=== PATIENT | male | born 1955 | race Asian ===

== ENCOUNTER 2018-07-07 22:46 | Emergency (ER) | payer MEDICARE, MEDICAID ==
[2018-07-07] MEDS ORDERED: SODIUM CHLORIDE 0.9% 1000ML 1,000 ML IVS ONE (23:10)
[2018-07-07] MEDS ORDERED: SODIUM CHLORIDE 0.9% (FLUSH) 10 ML SYG IV PRN (23:10)
[2018-07-07] MEDS ORDERED: SODIUM CHLORIDE 0.9% 1000ML 1,000 ML ONE (23:10)
[2018-07-07] MEDS ORDERED: CEFEPIME 2 GM in SODIUM CHL 0.9% 50ML MIN-BAG+ 50 ML IVPB ONE (23:13)
--- NOTE | 2018-07-07 23:20 | ED.PDOC ---
History of Present Illness - General Stated Complaint: unresponsive, tachycardia Time Seen by Provider: 07/07/18 23:05 Source: Vital Signs reviewed, [facility] records Exam Limitations: clinical condition, language barrier, physical impairment - History of Present Illness Initial Comments: Pt sent from [facility] for unresponsiveness. When pt is alert, he speaks only Slovak. 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 and has a trach and G- tube and beckman cath Timing/Duration: unsure Severity: severe Improving Factors: nothing Worsening Factors: nothing Associated Symptoms: fever/chills Allergies/Adverse Reactions: Allergies NO KNOWN ALLERGY Allergy (Verified 07/08/18 01:30) Review of Systems - Review of Systems Unable to Obtain Due To: condition Family Medical History - Family History Father Family History: Unknown Physical Exam - Physical Exam General Appearance: Emaciated, Unkempt, Other - unresponsive Neck: non-tender, full range of motion Respiratory: decreased breath sounds, rhonchi Cardiovascular/Chest: tachycardia Gastrointestinal/Abdominal: non tender, soft Extremity: other - atrophic and contractured Neurologic: other - unresponsive Skin Exam: normal color, warm/dry Lymphatic: no adenopathy Progress - EKG/XRAY/CT EKG: Sinus, Tachy, nonspecific ST T wave Chg Comments: Rate 140, PA 112, QRS 72 Departure - Departure Clinical Impression: Sepsis Qualifiers: Sepsis type: sepsis due to unspecified organism Qualified Code(s): A41.9 - Sepsis, unspecified organism Pneumonia Qualifiers: Pneumonia type: due to unspecified organism Laterality: right Lung location: lower lobe of lung Qualified Code(s): J18.1 - Lobar pneumonia, unspecified organism Disposition: Transfer to Hospital Condition: Fair Departure Forms: ED Discharge - Pt. Copy, Patient Portal Self Enrollment Instructions: DI for Sepsis -- Adult Referrals: JOVAN PIPER [Primary Care Provider] - 1-2 Weeks
--- NOTE | 2018-07-07 23:33 | RAD ---
EXAM DESCRIPTION: Chest,1 View CLINICAL HISTORY:63 years Male, ventilator pt Comparison: None FINDINGS: Tracheostomy tube projecting over the tracheal air column. Sternotomy wires noted. Left lung is clear. Cardiac silhouette within normal limits. Right basilar consolidation suspicious for pneumonia. IMPRESSION: Right basilar consolidation suspicious for pneumonia. Follow-up recommended. Electronically signed by: Cliff Godwin MD 07/07/2018 11:31 PM CDT
[2018-07-07] MEDS ORDERED: CEFEPIME 2 GM VIAL ONE (23:51)
[2018-07-07] MEDS ORDERED: SODIUM CHL 0.9% 50ML MIN-BAG+ 50 ML IVPB ONE (23:52)
[2018-07-08 00:44] VITALS: TEMP 99.7
[2018-07-08 01:49] VITALS: BP 134/68; O2SAT 95
== END 2018-07-08 01:54 | disposition short-term general hospital (02) ==
LOC: ER 22:46
DX: A41.9 Sepsis, unspecified organism (principal); J18.9 Pneumonia, unspecified organism; R41.89 Other symptoms and signs involving cognitive functions and awareness; R00.0 Tachycardia, unspecified
CPT/HCPCS: 36600; 71045; 80053; 81001; 82550; 82553; 82803; 82805; 83605; 84484; 85025; 85379; 85610; 85730; 87040; 87077; 87086; 93005; 94002; J0692; J7030; J7050

== ENCOUNTER 2018-07-14 17:32 | Emergency (ER) | payer MEDICARE, MEDICAID ==
[2018-07-14] MEDS ORDERED: SODIUM CHLORIDE 0.9% 1000ML 1,000 ML ONE (18:23)
--- NOTE | 2018-07-14 18:27 | RAD ---
EXAM DESCRIPTION: AP view of the chest CLINICAL HISTORY:63 years Male, low o2 sat Comparison: July 07, 2018 2319 hours FINDINGS: Tracheostomy tube remains in position. Interval placement of left upper extremity PICC which terminates in the mid SVC. Persistent alveolar opacities in the right mid/lower lung zone suspicious for pneumonia. There is also atelectasis on the right. Left lung is clear. No pleural abnormalities. Cardiac silhouette is normal in size. The patient has had a median sternotomy. Gastrostomy tube is projected over the stomach. IMPRESSION: Left upper extremity PICC terminates in the mid SVC. Persistent right basilar airspace disease suspicious for pneumonia. Electronically signed by: Houston Turcios DO 07/14/2018 6:26 PM CDT
--- NOTE | 2018-07-14 18:31 | ED.PDOC ---
History of Present Illness - General Source: EMS, residential records Exam Limitations: clinical condition, physical impairment - History of Present Illness Initial Comments: PT IS A VENT DEPENDENT PATIENT THAT WAS SENT FROM [facility] FOR LOW O2 SAT. PT IS CURRENTLY BEING TREATED FOR PNEUMONIA AND SEPSIS WITH VANCOMYCIN AND CEFIPIME. HPI AND ROS LIMITED DUE TO PT MENTAL STATUS. Timing/Duration: this afternoon Severity: moderate <Pierce Astudillo H - Last Filed: 07/14/18 18:28> <Yung Bruno - Last Filed: 07/15/18 01:15> - General Chief Complaint: Respiratory Problem Stated Complaint: LOW O2 SAT Time Seen by Provider: 07/14/18 17:49 - History of Present Illness Allergies/Adverse Reactions: Allergies NO KNOWN ALLERGY Allergy (Verified 07/08/18 01:30) Review of Systems - Review of Systems Constitutional: States: see HPI EENTM: States: see HPI Respiratory: States: see HPI Cardiology: States: see HPI Gastrointestinal/Abdominal: States: see HPI Musculoskeletal: States: see HPI Skin: States: see HPI Neurological: States: see HPI Endocrine: States: see HPI Hematologic/Lymphatic: States: see HPI <Pierce Astudillo H - Last Filed: 07/14/18 18:28> Past Medical History (General) - Patient Medical History Hx Seizures: Yes Hx Stroke: Yes Hx of COPD: Yes Hx Cardiac Disorders: Yes Hx Congestive Heart Failure: No Hx Hypertension: Yes Hx Cancer: No Hx Hepatitis C: No - Vaccination History Hx Tetanus, Diphtheria Vaccination: No Hx Influenza Vaccination: Yes Hx Pneumococcal Vaccination: Yes Immunizations Up to Date: No - Social History Hx Tobacco Use: No Hx Chewing Tobacco Use: No Hx Alcohol Use: No Hx Substance Use: No Hx Substance Use Treatment: No Hx Depression: No Feels Threatened In Home Enviroment: No Feels Threatened In a Relationship: No Hx Physical Abuse: No Hx Emotional Abuse: No Hx Suspected Abuse: No - Activities of Daily Living Senior Living/Assisted Living (if applicable):: [facility] (if applicable):: None - Female History Patient is a Female of Child Bearing Age (10 -59 yrs old): No Patient : No <Pierce Astudillo - Last Filed: 07/14/18 18:28> Family Medical History - Family History Father Family History: Unknown <Pierce Astudillo - Last Filed: 07/14/18 18:28> Physical Exam - Physical Exam General Appearance: Alert, Emaciated, Frail, No apparent distress, Ill Appearing Eye Exam: bilateral normal Neck: normal inspection Respiratory: no respiratory distress, no accessory muscle use, rhonchi Cardiovascular/Chest: no murmur, tachycardia Gastrointestinal/Abdominal: soft, no organomegaly, other - PEG TUBE IN LUQ Extremity: other - CONTRACTED EXTREMITIES Neurologic: alert Skin Exam: normal color, warm/dry <Pierce Astudillo - Last Filed: 07/14/18 18:28> Progress - EKG/XRAY/CT EKG: Sinus, Tachy - @118BPM, NL INTERVALS, NL AXIS, no ST T wave changes, Unchanged from - 07/07/18 XRAY: chest - PERSISTENT RIGHT BASILAR INFILTRATE, PER RAD CT Ordered: No CT Interpretation Call Back: No <Pierce Astudillo - Last Filed: 07/14/18 18:28> - Progress Progress: 07/15/18 01:06 Vital Signs - 8 hr 07/14/18 07/14/18 07/14/18 17:32 18:28 19:10 Temperature 97.8 F Pulse Rate [ 118 H Apical] Respiratory 14 14 Rate Respiratory 18 17 Rate [Volume Control Data] Blood Pressure 114/90 [Left Arm] O2 Sat by Pulse 93 L 93 L Oximetry 07/14/18 07/14/18 07/14/18 19:42 20:25 20:46 Temperature Pulse Rate [ 113 H Apical] Respiratory 14 16 Rate Respiratory 15 Rate [Volume Control Data] Blood Pressure 116/81 123/76 [Left Arm] O2 Sat by Pulse 99 99 Oximetry 07/14/18 07/14/18 07/14/18 21:20 22:10 23:18 Temperature Pulse Rate [ 112 H Apical] Respiratory 16 16 Rate Respiratory 14 Rate [Volume Control Data] Blood Pressure 129/94 113/71 [Left Arm] O2 Sat by Pulse 99 99 Oximetry 07/14/18 23:20 Temperature 98.3 F Pulse Rate [ 107 H Apical] Respiratory 16 Rate Respiratory Rate [Volume Control Data] Blood Pressure 95/67 [Left Arm] O2 Sat by Pulse 99 Oximetry 07/15/18 01:13 Patient presently on Cefepime and Vancomycin continued after his hospital discharge from [facility] at the [facility] - Results/Orders Results/Orders: 07/14/18 18:00 EKG STAT 07/14/18 18:19 Mechanical Ventilation DAILY 07/14/18 18:20 Capnography .ONCE 07/14/18 18:21 Oxygen Delivery Assessment: QSHIFT 07/14/18 19:10 URINE CULTURE W/COLONY COUNT Stat 07/15/18 00:34 Sodium Chloride 0.9% 1000ML [Ns 1000 ml] 1,000 ml IVS ONCE 07/15/18 09:00 O2 [Oxygen] Daily Laboratory Results - last 24 hr 07/14/18 07/14/18 07/14/18 18:05 18:07 18:07 WBC 22.1 H* RBC 3.57 L Hgb 9.7 L Hct 30.5 L MCV 85.5 MCH 27.1 MCHC 31.9 L RDW 18.1 H Plt Count 459 H MPV 6.0 L Absolute Neuts (auto) 19.20 H Absolute Lymphs (auto) 0.90 L Absolute Monos (auto) 1.70 H Absolute Eos (auto) 0.30 Absolute Basos (auto) 0.10 Neutrophils % 87.0 H Neutrophils % (Manual) 88.0 H Lymphocytes % 3.8 L Lymphocytes % (Manual) 2.0 Monocytes % 7.7 Monocytes % (Manual) 8.0 Eosinophils % 1.2 Basophils % 0.3 Band Neutrophils 2.0 Normal RBC Morphology Plts alexis increased pCO2 43 pO2 64 L HCO3 33.9 ABG pH 7.510 H ABG O2 Saturation 93.9 L ABG Base Excess 10.0 ABG Deoxyhemoglobin 6.0 H Oxyhemoglobin % 92.1 L Carboxyhemoglobin % 0.3 L Methemoglobin % Sat 1.7 H Calc Total Hemoglobin 9.4 L Sodium 137 Potassium 3.4 L Chloride 96 L Carbon Dioxide 33 H Anion Gap 11.4 L BUN 18 Creatinine 0.45 L BUN/Creatinine Ratio 40.0 H Random Glucose 180 H Serum Osmolality 280.2 Lactic Acid Calcium 8.9 Total Bilirubin 0.4 AST 30 ALT 11 Alkaline Phosphatase 64 Creatine Kinase CK-MB (CK-2) CK-MB (CK-2) % Troponin I Serum Total Protein 6.8 Albumin 2.1 L Globulin 4.7 H Albumin/Globulin Ratio 0.4 L Urine Color Urine Appearance Urine pH Ur Specific [place] Urine Protein Urine Glucose (UA) Urine Ketones Urine Blood Urine Nitrite Urine Bilirubin Urine Urobilinogen Ur Leukocyte Esterase Urine RBC Urine WBC Ur Epithelial Cells Urine Bacteria Urine Yeast 07/14/18 07/14/18 07/14/18 18:07 19:10 22:25 WBC RBC Hgb Hct MCV MCH MCHC RDW Plt Count MPV Absolute Neuts (auto) Absolute Lymphs (auto) Absolute Monos (auto) Absolute Eos (auto) Absolute Basos (auto) Neutrophils % Neutrophils % (Manual) Lymphocytes % Lymphocytes % (Manual) Monocytes % Monocytes % (Manual) Eosinophils % Basophils % Band Neutrophils Normal RBC Morphology pCO2 pO2 HCO3 ABG pH ABG O2 Saturation ABG Base Excess ABG Deoxyhemoglobin Oxyhemoglobin % Carboxyhemoglobin % Methemoglobin % Sat Calc Total Hemoglobin Sodium Potassium Chloride Carbon Dioxide Anion Gap BUN Creatinine BUN/Creatinine Ratio Random Glucose Serum Osmolality Lactic Acid 1.3 Calcium Total Bilirubin AST ALT Alkaline Phosphatase Creatine Kinase 21 L CK-MB (CK-2) 3.3 CK-MB (CK-2) % Not Reportable Troponin I 0.04 Serum Total Protein Albumin Globulin Albumin/Globulin Ratio Urine Color Yellow Urine Appearance Turbid Urine pH 7.0 Ur Specific [place] 1.025 Urine Protein 100 H Urine Glucose (UA) Negative Urine Ketones Negative Urine Blood Large H Urine Nitrite Negative Urine Bilirubin Negative Urine Urobilinogen 0.2 Ur Leukocyte Esterase Small H Urine RBC Tntc H Urine WBC 20-30 H Ur Epithelial Cells 1-3 Urine Bacteria 3+ H Urine Yeast 4+ budding <Yung Bruno R - Last Filed: 07/15/18 01:15> Departure <Pierce Astudillo H - Last Filed: 07/14/18 18:28> - Departure Time of Disposition: 01:14 <Yung Bruno R - Last Filed: 07/15/18 01:15> - Departure Clinical Impression: Ventilator dependent, Chronic indwelling [place] catheter, PEG (percutaneous endoscopic gastrostomy) status Respiratory failure Qualifiers: Chronicity: acute on chronic Respiratory failure complication: hypoxia Qualified Code(s): J96.21 - Acute and chronic respiratory failure with hypoxia Pneumonia Qualifiers: Pneumonia type: due to Pseudomonas Laterality: right Lung location: lower lobe of lung Qualified Code(s): J15.1 - Pneumonia due to Pseudomonas Disposition: Transfer to Hospital Condition: Poor Departure Forms: Patient Portal Self Enrollment Referrals: JOVAN PIPER [Primary Care Provider] - 1-2 Weeks Transfer to Outside Facility - Transfer Information Accepting Provider:: dr. Kori Mar Accepting Facility: [facility] Reason for Transfer: ICU <Yung Bruno - Last Filed: 07/15/18 01:15>
[2018-07-15] MEDS ORDERED: MEROPENEM 1 GM in SODIUM CHL 0.9% 50ML MIN-BAG+ 50 ML IVPB ONE (00:18)
[2018-07-15] MEDS ORDERED: SODIUM CHLORIDE 0.9% 1000ML 1,000 ML IVS ONE (00:34)
[2018-07-15] MEDS ORDERED: MEROPENEM 1 GM VIAL IVPB ONE (00:39)
[2018-07-15] MEDS ORDERED: SODIUM CHL 0.9% 50ML MIN-BAG+ 50 ML IVPB ONE (00:39)
[2018-07-15 02:49] VITALS: BP 111/68; TEMP 98.2; O2SAT 100
== END 2018-07-15 02:49 | disposition short-term general hospital (02) ==
LOC: ER 17:32
DX: J96.21 Acute and chronic respiratory failure with hypoxia (principal); J15.1 Pneumonia due to Pseudomonas; R09.02 Hypoxemia; R41.82 Altered mental status, unspecified; J44.9 Chronic obstructive pulmonary disease, unspecified; I10 Essential (primary) hypertension; Z99.11 Dependence on respirator [ventilator] status; Z93.1 Gastrostomy status; Z86.73 Personal history of transient ischemic attack (TIA), and cerebral infarction without residual deficits
CPT/HCPCS: 36600; 71045; 80053; 81001; 82550; 82553; 82803; 82805; 83605; 84484; 85025; 87086; 93005; 94002; 94770; J2185; J7030; J7050

== ENCOUNTER 2018-08-08 16:11 | Emergency (ER) | payer MEDICARE, MEDICAID ==
--- NOTE | 2018-08-08 16:58 | RAD ---
EXAM DESCRIPTION: Chest,1 View CLINICAL HISTORY: fever COMPARISON: July 14, 2018 FINDINGS: Persistent abnormal parenchymal opacity at the right perihilar level/right lower lung could be secondary to an infectious process however worrisome for underlying obstruction or mass. Correlation with a CT is recommended for further evaluation. Reticular nodular opacities also noted within the right mid and lower lung. There is elevation of the right hemidiaphragm unchanged compared with the prior exam. Patient is status post median sternotomy. EKG leads project over the chest. There is a tracheostomy tube. IMPRESSION: Persistent abnormal parenchymal opacity within the right lung could be secondary to postobstructive atelectasis or pneumonitis however worrisome for underlying obstruction or mass. Correlation with a contrast enhanced CT is recommended for further evaluation. Electronically signed by: George Sam MD 08/08/2018 4:56 PM [employer]
[2018-08-08] MEDS ORDERED: cefTRIAXone SODIUM 1 GM VIAL ONE (17:18)
[2018-08-08] MEDS ORDERED: SODIUM CHL 0.9% 50ML MIN-BAG+ 50 ML IVPB ONE (17:18)
[2018-08-08] MEDS: SODIUM CHLORIDE 0.9% 1000ML 1,000 ML IVS ONE (17:23)
[2018-08-08] MEDS: cefTRIAXone SODIUM 1 GM in SODIUM CHL 0.9% 50ML MIN-BAG+ 50 ML IVPB ONE (17:24)
[2018-08-08] MEDS ORDERED: PIPERACILLIN/TAZOBACTAM 3.375 GM VIAL IVPB ONE (17:34)
[2018-08-08] MEDS ORDERED: SODIUM CHLORIDE 0.9% 100ML 100 ML IVPB ONE (17:35)
[2018-08-08] MEDS: PIPERACILLIN/TAZOBACTAM 3.375 GM in SODIUM CHLORIDE 0.9% 100ML 100 ML IVPB ONE (17:46)
[2018-08-08 17:50] VITALS: BP 109/81; O2SAT 99
--- NOTE | 2018-08-08 17:52 | ED.PDOC ---
History of Present Illness - General Chief Complaint: Fever Stated Complaint: high heart rate Time Seen by Provider: 08/08/18 16:24 Source: EMS, snf records Exam Limitations: clinical condition - History of Present Illness Initial Comments: Patient presents from [facility] after it was noticed that he had tachycardia. They gave him clonidine 0.1 mg x one for that. He has had sepsis for one month and has been on Vancomycin. Blood cultures that recently became available today showed Serratia and Pseudomonas. He is not currently on antibiotics according to report. No other information is available. Timing/Duration: unsure Severity: moderate Improving Factors: nothing Worsening Factors: nothing Associated Symptoms: other - unable to obtain any further information Allergies/Adverse Reactions: Allergies NO KNOWN ALLERGY Allergy (Verified 07/08/18 01:30) Review of Systems - Review of Systems Constitutional: States: fever EENTM: States: no symptoms reported Respiratory: States: other - chronic vent patient Cardiology: States: see HPI Gastrointestinal/Abdominal: States: no symptoms reported Genitourinary: States: no symptoms reported Musculoskeletal: States: no symptoms reported Skin: States: no symptoms reported Neurological: States: no symptoms reported Endocrine: States: no symptoms reported Hematologic/Lymphatic: States: no symptoms reported Past Medical History (General) - Patient Medical History Hx Seizures: Yes Hx Stroke: Yes Hx of COPD: Yes Hx Cardiac Disorders: Yes Hx Congestive Heart Failure: No Hx Hypertension: Yes Hx Diabetes: No Hx Cancer: No Hx Hepatitis C: No MRSA Source:: Sputum - Vaccination History Hx Tetanus, Diphtheria Vaccination: No Hx Influenza Vaccination: Yes Hx Pneumococcal Vaccination: Yes - Social History Hx Tobacco Use: No Hx Chewing Tobacco Use: No Hx Alcohol Use: No Hx Substance Use: No Hx Substance Use Treatment: No Hx Depression: No Hx Physical Abuse: No Hx Emotional Abuse: No Hx Suspected Abuse: No - Activities of Daily Living Correction/Assisted Living (if applicable):: [facility] - Female History Patient : No Family Medical History - Family History Father Family History: Unknown Physical Exam - Physical Exam General Appearance: Other - on mechanical ventilator, eyes follow practitioner Eye Exam: bilateral normal Ears, Nose, Throat: normal ENT inspection Neck: other - no LAD, tracheal ventilator tube in place Respiratory: other - rales at bases Cardiovascular/Chest: tachycardia Gastrointestinal/Abdominal: normal bowel sounds, other - G-tube in place Back Exam: no CVA tenderness Extremity: no pedal edema Neurologic: other - responds to motion with eye movement and withdraws from pain Skin Exam: normal color Lymphatic: no adenopathy Progress - Progress Progress: 08/08/18 17:55 Laboratory Tests 08/08/18 08/08/18 08/08/18 16:37 17:00 17:00 WBC 24.1 H* RBC 3.59 L Hgb 9.8 L Hct 30.5 L MCV 85.1 MCH 27.2 MCHC 32.1 L RDW 17.6 H Plt Count 265 MPV 6.6 L Absolute Neuts (auto) 21.10 H Absolute Lymphs (auto) 0.50 L Absolute Monos (auto) 2.40 H Absolute Eos (auto) 0.00 Absolute Basos (auto) 0.00 Neutrophils % 87.9 H Neutrophils % (Manual) 71.0 Lymphocytes % 2.2 L Lymphocytes % (Manual) 2.0 Monocytes % 9.8 H Monocytes % (Manual) 0.0 Eosinophils % 0.0 L Basophils % 0.1 Band Neutrophils 27.0 H* Eosinophils 0.0 Basophils 0.0 Platelet Estimate Normal Sodium 129 L Potassium 3.5 L Chloride 93 L Carbon Dioxide 27 Anion Gap 12.5 BUN 17 Creatinine 0.64 BUN/Creatinine Ratio 26.6 H Random Glucose 130 H Serum Osmolality 262.2 L Lactic Acid Calcium 8.8 Total Bilirubin 0.3 AST 16 ALT < 8 L Alkaline Phosphatase 67 Serum Total Protein 7.3 Albumin 2.5 L Globulin 4.8 H Albumin/Globulin Ratio 0.5 L Urine Color Red Urine Appearance Sl cloudy Urine pH 6.0 Ur Specific [place] 1.020 Urine Protein >=300 H Urine Glucose (UA) Negative Urine Ketones Trace Urine Blood Large H Urine Nitrite Negative Urine Bilirubin Moderate Urine Urobilinogen 1.0 Ur Leukocyte Esterase Small H Urine RBC Tntc H Urine WBC 3-5 H Ur Epithelial Cells 0 Urine Bacteria 1+ 08/08/18 17:21 WBC RBC Hgb Hct MCV MCH MCHC RDW Plt Count MPV Absolute Neuts (auto) Absolute Lymphs (auto) Absolute Monos (auto) Absolute Eos (auto) Absolute Basos (auto) Neutrophils % Neutrophils % (Manual) Lymphocytes % Lymphocytes % (Manual) Monocytes % Monocytes % (Manual) Eosinophils % Basophils % Band Neutrophils Eosinophils Basophils Platelet Estimate Sodium Potassium Chloride Carbon Dioxide Anion Gap BUN Creatinine BUN/Creatinine Ratio Random Glucose Serum Osmolality Lactic Acid 1.4 Calcium Total Bilirubin AST ALT Alkaline Phosphatase Serum Total Protein Albumin Globulin Albumin/Globulin Ratio Urine Color Urine Appearance Urine pH Ur Specific [place] Urine Protein Urine Glucose (UA) Urine Ketones Urine Blood Urine Nitrite Urine Bilirubin Urine Urobilinogen Ur Leukocyte Esterase Urine RBC Urine WBC Ur Epithelial Cells Urine Bacteria wbc 24.1. Lactic acid 1.3. Patient given Rocephin 1 gram IV and Zosyn 3.375 grams IV x one based on the most recent sensitivity data. CXR showed pneumonitis vs. infiltrates at the bases. UA showed hematuria. Patient was also given NS one liter IV bolus due to sbp of 91 and the tachycardia. Likely sepsis from a pulmonary source. Transferred to [facility]. Departure - Departure Clinical Impression: Sepsis, Pneumonia Disposition: Transfer to Hospital Condition: Serious Departure Forms: ED Discharge - Pt. Copy, Patient Portal Self Enrollment Diet: other - as per hospitalist Activity: other - as per hospitalist Referrals: JOVAN PIPER [Primary Care Provider] - 1-2 Weeks
[2018-08-08 18:26] VITALS: TEMP 100.2
== END 2018-08-08 18:26 | disposition short-term general hospital (02) ==
LOC: ER 16:11
DX: J18.9 Pneumonia, unspecified organism (principal); A41.9 Sepsis, unspecified organism; R00.0 Tachycardia, unspecified; I10 Essential (primary) hypertension; J44.9 Chronic obstructive pulmonary disease, unspecified; Z86.73 Personal history of transient ischemic attack (TIA), and cerebral infarction without residual deficits
CPT/HCPCS: 36415; 71045; 80053; 81001; 83605; 85025; 87040; 87086; 93005; 94002; J0696; J2543; J7030; J7050

== ENCOUNTER 2018-09-11 20:09 | Emergency (ER) | payer MEDICARE, MEDICAID ==
--- NOTE | 2018-09-11 20:22 | ED.PDOC ---
History of Present Illness - General Chief Complaint: General Stated Complaint: per NH has been less alet than baseline Time Seen by Provider: 09/11/18 20:15 Source: EMS, senior care records Exam Limitations: clinical condition, physical impairment - History of Present Illness Initial Comments: patient comes in today from senior care for altered level of consciousness. detention noted that he was not as alert as his normal baseline. Patient has had multiple bouts of sepsis over the last 3 months since arrival to the senior care. Patient's last episode of illness was on 07 August when he was transferred to [facility]. At that admission blood cultures were negative that had been obtained in this emergency room. Prior to that blood cultures have been positive for both pseudomonas and Seratia. 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 Patient is on a ventilator and is a full code. detention was unable to give full report to EMS and stated they were not sure where his sepsis had originated from for the last hospitalization. Timing/Duration: 24 hours Severity: moderate Improving Factors: nothing Worsening Factors: nothing Associated Symptoms: denies symptoms Allergies/Adverse Reactions: Allergies NO KNOWN ALLERGY Allergy (Verified 07/08/18 01:30) Review of Systems - Review of Systems Review of Systems: 09/11/18 20:22 unable to obtain secondary to chronic clinic condition Past Medical History (General) - Patient Medical History Hx Seizures: Yes Hx Stroke: Yes Hx of COPD: Yes Hx Cardiac Disorders: Yes Hx Congestive Heart Failure: No Hx Hypertension: Yes Hx Diabetes: No Hx Cancer: No Hx Hepatitis C: No MRSA Source:: Sputum - Vaccination History Hx Tetanus, Diphtheria Vaccination: No Hx Influenza Vaccination: Yes Hx Pneumococcal Vaccination: Yes - Social History Hx Tobacco Use: No Hx Chewing Tobacco Use: No Hx Alcohol Use: No Hx Substance Use: No Hx Substance Use Treatment: No Hx Depression: No Hx Physical Abuse: No Hx Emotional Abuse: No Hx Suspected Abuse: No - Female History Patient : No Family Medical History - Family History Father Family History: Unknown Physical Exam - Physical Exam General Appearance: Frail, No apparent distress, Other - patient is awake and looking around, not able to answer questions, per RT baseline status Eye Exam: bilateral normal Ears, Nose, Throat: normal ENT inspection, normal pharynx Neck: full range of motion, supple Respiratory: chest non-tender, lungs clear, normal breath sounds Cardiovascular/Chest: normal peripheral pulses, regular rate, rhythm, no murmur Peripheral Pulses: radial,right: 2+, radial,left: 2+ Gastrointestinal/Abdominal: normal bowel sounds, non tender, soft, other - G Tube in place Extremity: normal range of motion, non-tender, normal inspection Neurologic: alert Skin Exam: normal color Progress - Progress Progress: called patient's point of contact which is his [id number]. Per daughter-in -law he was a very healthy man up until December of this year. In December during traveling to the non-patient sustained severe heart attack and hemorrhagic CVA. After that he was unable to be taken off the ventilator for more than a day to time and he seemed to have rapidly decompensated ever since. As they were unable to him off the ventilator he was placed at the senior care here in [facility] [facility] in June. Since then he has been back in the emergency room every 1-2 weeks and hospitalized at [facility] approximately once a month. He does not ever seem to improve and they have yet to find where his source of sepsis is per his [id number]. He does seem alert and able to communicate with his side however. Family has discussed how much longer they would like to continue to do invasive therapy but have not come to a consensus yet. As he was healthy up until early this year they still have hopes that he could improve and potentially recover although they understand that he has progressively worsened in the last 3 months. At this time they still do want him to have access to full treatment and he is a full code. Discussed patient' s need for blood transfusion and his elevated white blood cell count and anemia. Guaiac is negative and he has no acute blood loss that we can find. CT of abdomen and pelvis shows some small amount of free fluid only. Chest Xray does show persistent right basilar infiltrate and CT shows pneumonia bilaterally. Blood to be started here then will arrange transfer. 09/11/18 23:18 09/11/18 23:22 09/11/18 23:30 09/12/18 01:16 - Results/Orders Results/Orders: 09/11/18 20:16 TROPONIN-I Stat BLOOD CULTURE Stat 09/11/18 21:20 CBC (AUTOMATED) W/AUTO DIFF Stat DIFFERENTIAL,MANUAL BY FLAGS Stat 09/11/18 21:55 URINE CULTURE W/COLONY COUNT Stat 09/11/18 22:34 Vancomycin HCl Inj 1,000 mg Sodium Chloride 0.9% 250Ml [NS 250ml] 250 ml IVPB ONCE 09/11/18 22:48 PRBC [PACKED CELLS,LR] Stat TYPE AND SCREEN Stat Laboratory Results WBC 25.2 K/mm3 (4.8-10.8) H* 09/11/18 21:20 RBC 2.27 M/mm3 (4.70-6.10) L 09/11/18 21:20 Hgb 6.3 gm/dL (14.0-18.0) L* 09/11/18 21:20 Hct 19.3 % (42.0-52.0) L 09/11/18 21:20 MCV 85.1 fl (80.0-94.0) 09/11/18 21:20 MCH 27.7 pg (27.0-31.0) 09/11/18 21:20 MCHC 32.7 g/dL (33.0-37.0) L 09/11/18 21:20 RDW 17.2 % (11.5-14.5) H 09/11/18 21:20 Plt Count 404 K/mm3 (130-400) H 09/11/18 21:20 MPV 5.8 fl (7.40-10.4) L 09/11/18 21:20 Absolute Neuts (auto) K/uL (1.8-6.8) 09/11/18 21:20 Absolute Lymphs (auto) K/uL (1.0-3.4) 09/11/18 21:20 Absolute Monos (auto) K/uL (0.2-0.8) 09/11/18 21:20 Absolute Eos (auto) K/uL (0.0-0.4) 09/11/18 21:20 Absolute Basos (auto) K/uL (0.0-0.1) 09/11/18 21:20 Neutrophils % % (42.0-78.0) 09/11/18 21:20 Neutrophils % (Manual) 77.0 % (42.0-78.0) 09/11/18 21:20 Lymphocytes % % (20.0-50.0) 09/11/18 21:20 Lymphocytes % (Manual) 8.0 % 09/11/18 21:20 Monocytes % % (2.0-9.0) 09/11/18 21:20 Monocytes % (Manual) 7.0 % 09/11/18 21:20 Eosinophils % % (1.0-5.0) 09/11/18 21:20 Basophils % % (0.0-2.0) 09/11/18 21:20 Band Neutrophils 7.0 % (0-2) H 09/11/18 21:20 Metamyelocytes 1.0 % (0-0) H 09/11/18 21:20 RBC Morphology 1+aniso 09/11/18 21:20 Anisocytosis 1+ 09/11/18 21:20 RBC Morph Comment Plts alexis increased 09/11/18 21:20 PUBS Tear Drop Cells 1+ 09/11/18 21:20 Sodium 132 mmol/L (135-145) L 09/11/18 21:55 Potassium 3.1 mmol/L (3.6-5.0) L 09/11/18 21:55 Chloride 92 mmol/L (101-111) L 09/11/18 21:55 Carbon Dioxide 28 mmol/L (21-31) 09/11/18 21:55 Anion Gap 15.1 (12-18) 09/11/18 21:55 BUN 54 mg/dL (7-18) H 09/11/18 21:55 Creatinine 1.45 mg/dL (0.6-1.3) H 09/11/18 21:55 BUN/Creatinine Ratio 37.2 (10-20) H 09/11/18 21:55 Random Glucose 100 mg/dL (70-105) 09/11/18 21:55 Serum Osmolality 279.4 mOsm/L (275-295) 09/11/18 21:55 Lactic Acid 0.7 mmol/L (0.5-2.2) 09/11/18 21:55 Calcium 9.5 mg/dL (8.4-10.2) 09/11/18 21:55 Total Bilirubin < 0.2 mg/dL (0.2-1.0) L 09/11/18 21:55 AST 16 IU/L (10-42) 09/11/18 21:55 ALT < 8 IU/L (10-60) L 09/11/18 21:55 Alkaline Phosphatase 68 IU/L (42-121) 09/11/18 21:55 Serum Total Protein 7.4 gm/dL (6.4-8.2) 09/11/18 21:55 Albumin 2.0 g/dl (3.2-5.5) L 09/11/18 21:55 Globulin 5.4 gm/dL (2.3-3.5) H 09/11/18 21:55 Albumin/Globulin Ratio 0.4 (1.1-1.9) L 09/11/18 21:55 Urine Color Yellow (Yellow) 09/11/18 21:55 Urine Appearance Cloudy (Clear) 09/11/18 21:55 Urine pH 7.0 (4.5-7.8) 09/11/18 21:55 Ur Specific [place] 1.015 (1.005-1.030) 09/11/18 21:55 Urine Protein 100 mg/dL H 09/11/18 21:55 Urine Glucose (UA) Negative mg/dL (Negative) 09/11/18 21:55 Urine Ketones Negative mg/dL (NEGATIVE) 09/11/18 21:55 Urine Blood Large (Negative) H 09/11/18 21:55 Urine Nitrite Negative 09/11/18 21:55 Urine Bilirubin Negative (NEGATIVE) 09/11/18 21:55 Urine Urobilinogen 0.2 mg/dL (0.2-1.0) 09/11/18 21:55 Ur Leukocyte Esterase Small (Negative) H 09/11/18 21:55 Urine RBC 5-10 /hpf H 09/11/18 21:55 Urine WBC 5-10 /hpf H 09/11/18 21:55 Ur Epithelial Cells 0 /hpf 09/11/18 21:55 Amorphous Sediment 1+ 09/11/18 21:55 Urine Bacteria 1+ 09/11/18 21:55 Urine Yeast 2+ budding 09/11/18 21:55 Stool Occult Blood Negative 09/11/18 20:55 Patient Name: NYDIA POE V Gender: Male Date of : 1955 Referring Physician: NENA HANSON Organization: [facility] Accession Number: [id number] Requested Date: September 11, 2018 20:16 Report Status: Final Requested Procedure: 1 Procedure Description: Chest,1 View Modality: CR Findings Reporting MD: Houston Turcios Fellow MD: Not available Dictation Time: Distribution Designer: Not available Canvas Cutter Hand Date: EXAM DESCRIPTION: AP view of the chest CLINICAL HISTORY:63 years Male, altered LOC Comparison: August 08, 2018 1637 hours FINDINGS: Tracheostomy tube remains in place but appears retracted. Persistent right lower lobe opacities. Increased hazy opacity in the left lung base. The cardiac silhouette and pulmonary vessels are stable. There is blunting of the right CP angle. IMPRESSION: New airspace opacities in the left base may represent atelectasis or pneumonia. Persistent right basilar opacities again concerning for underlying obstruction or mass. Suspect tiny right pleural effusion Patient Name: NYDIA POE V Gender: Male Date of : 1955 Referring Physician: NENA HANSON Organization: [facility] Accession Number: [id number] Requested Date: September 11, 2018 23:29 Report Status: Final Requested Procedure: 1 Procedure Description: Abdoment/Pelvis w/o Contrast Modality: CT Findings Reporting MD: Fer Mott Fellow MD: Not available Dictation Time: Distribution Designer: Not available Canvas Cutter Hand Date: EXAM: CT ABDOMEN PELVIS WITHOUT IV CONTRAST, CT CHEST WITHOUT IV CONTRAST HISTORY: anemia/sepsis COMPARISON: None Available TECHNIQUE: Multiple helical axial tomographic images were obtained of the chest, abdomen, and pelvis without intravenous contrast. Coronal and sagittal reformatted images were obtained. This exam was performed according to our departmental dose-optimization program, which includes automated exposure control, adjustment of the mA and/or kV according to patient size and/or use of iterative reconstruction technique. FINDINGS: CT chest: Thyroid gland: unremarkable. Axilla: unremarkable. Aorta: Aortic atherosclerosis present. No evidence of aortic aneurysm. Mediastinum: Unremarkable. No adenopathy. Heart: Heart is normal in size. Coronary artery atherosclerosis noted. Lungs/airways: Consolidation throughout the right lower lobe noted with bronchiectasis. Small area of consolidation in the posterior left lower lobe is present. There are scattered groundglass and tree-in-bud opacities in both lungs with a dependent and basilar predominance. Tracheostomy tube is present. Small amount of secretions in the trachea and right mainstem bronchus noted. No evidence of tracheal or major bronchial occlusion. Mild paraseptal emphysematous changes are present. Pleural spaces: Trace right pleural effusion is noted. No [employer] [address] [place] [address] T [phone] F [phone] [email or web address] - Report exported on Sep 12, 2018 01:09:23 -0600 - Page 2 of 3 pneumothorax. Osseous: Sternotomy changes are noted. Mild deformity of a few ribs noted bilaterally suggestive of remote fractures. Soft tissues: Unremarkable. CT abdomen and pelvis: Liver: Homogenous attenuation is demonstrated. Gallbladder/biliary: Gallbladder appears unremarkable. No calcified gallstones. No evidence of biliary ductal dilatation. Pancreas: Unremarkable. Spleen: Unremarkable. Adrenals: Unremarkable. Kidneys and ureters: There are a few small stones in the right kidney measuring up to 4 mm. No hydronephrosis. No obstructing ureteral stone. Bladder: Bladder wall appears thickened. Pelvic organs: Unremarkable. Bowel: A G-tube is present. No evidence of bowel obstruction. No bowel wall thickening. Appendix is not well seen. Peritoneum: No free air. There is a small amount of free fluid in the pelvis with density greater than simple fluid. Lymph nodes: Unremarkable. Vasculature: Aortoiliac atherosclerosis is present. Left common iliac artery appears mildly enlarged measuring 1.8 cm in width. Soft tissues: Unremarkable. Bones: Degenerative changes of the lumbar spine noted. There are chronic bilateral pars defects at L5 with grade 1 anterolisthesis of L5 relative to S1. Chronic appearing osseous excrescence arising from the right iliac bone posterior and superior to the acetabulum noted. Impression: 1. Consolidation throughout the right lower lobe concerning for pneumonia with bronchiectasis. Smaller amount of consolidation in the left lower lobe posteriorly. 2. Multifocal groundglass and tree-in-bud opacities in both lungs suggestive of pneumonia. 3. Small amount of tracheal and right mainstem bronchial secretions. 4. Thickened appearance of the bladder which may be related to incomplete distention or chronic outlet obstruction, correlate clinically for cystitis. 5. Small amount of nonspecific free fluid in the pelvis with [employer] [facility], [address] [place] [address] T [phone] F [phone] [email or web address] - Report exported on Sep 12, 2018 01:09:23 -0600 - Page 3 of 3 density greater than simple fluid. 6. Right-sided nephrolithiasis. 7. Atherosclerotic disease. Departure - Departure Clinical Impression: Ventilator dependent Pneumonia Qualifiers: Pneumonia type: due to unspecified organism Laterality: bilateral Lung location : lower lobe of lung Qualified Code(s): J18.1 - Lobar pneumonia, unspecified organism Anemia Qualifiers: Anemia type: unspecified type Qualified Code(s): D64.9 - Anemia, unspecified Disposition: Transfer to Hospital Condition: Fair Departure Forms: ED Discharge - Pt. Copy, Patient Portal Self Enrollment Referrals: JOVAN PIPER [Primary Care Provider] - 1-2 Weeks Transfer to Outside Facility - Transfer Information Accepting Facility: [facility] Reason for Transfer: specialized care not available
--- NOTE | 2018-09-11 20:39 | RAD ---
EXAM DESCRIPTION: AP view of the chest CLINICAL HISTORY:63 years Male, altered LOC Comparison: August 08, 2018 1637 hours FINDINGS: Tracheostomy tube remains in place but appears retracted. Persistent right lower lobe opacities. Increased hazy opacity in the left lung base. The cardiac silhouette and pulmonary vessels are stable. There is blunting of the right CP angle. IMPRESSION: New airspace opacities in the left base may represent atelectasis or pneumonia. Persistent right basilar opacities again concerning for underlying obstruction or mass. Suspect tiny right pleural effusion. Electronically signed by: Houston Turcios DO 09/11/2018 8:38 PM [facility]
[2018-09-11] MEDS ORDERED: PIPERACILLIN/TAZOBACTAM 3.375 GM in SODIUM CHLORIDE 0.9% 100ML 100 ML IVPB ONE (21:14)
[2018-09-11] MEDS ORDERED: SODIUM CHLORIDE 0.9% 1000ML 1,000 ML IVS ONE (21:14)
[2018-09-11] MEDS ORDERED: SODIUM CHLORIDE 0.9% 100ML 100 ML IVPB ONE (21:26)
[2018-09-11] MEDS ORDERED: PIPERACILLIN/TAZOBACTAM 3.375 GM VIAL IVPB ONE (21:26)
[2018-09-11] MEDS ORDERED: VANCOMYCIN HCL INJ 1,000 MG in SODIUM CHLORIDE 0.9% 250ML 250 ML IVPB ONE (22:34)
[2018-09-11] MEDS ORDERED: SODIUM CHLORIDE 0.9% 250ML 250 ML ONE (23:17)
[2018-09-11] MEDS ORDERED: VANCOMYCIN HCL INJ 1,000 MG VIAL IVPB ONE (23:17)
[2018-09-12] MEDS ORDERED: SODIUM CHLORIDE 0.9% 500ML 500 ML ONE (00:33)
--- NOTE | 2018-09-12 01:06 | CT ---
EXAM: CT ABDOMEN PELVIS WITHOUT IV CONTRAST, CT CHEST WITHOUT IV CONTRAST HISTORY: anemia/sepsis COMPARISON: None Available TECHNIQUE: Multiple helical axial tomographic images were obtained of the chest, abdomen, and pelvis without intravenous contrast. Coronal and sagittal reformatted images were obtained. This exam was performed according to our departmental dose-optimization program, which includes automated exposure control, adjustment of the mA and/or kV according to patient size and/or use of iterative reconstruction technique. FINDINGS: CT chest: Thyroid gland: unremarkable. Axilla: unremarkable. Aorta: Aortic atherosclerosis present. No evidence of aortic aneurysm. Mediastinum: Unremarkable. No adenopathy. Heart: Heart is normal in size. Coronary artery atherosclerosis noted. Lungs/airways: Consolidation throughout the right lower lobe noted with bronchiectasis. Small area of consolidation in the posterior left lower lobe is present. There are scattered groundglass and tree-in-bud opacities in both lungs with a dependent and basilar predominance. Tracheostomy tube is present. Small amount of secretions in the trachea and right mainstem bronchus noted. No evidence of tracheal or major bronchial occlusion. Mild paraseptal emphysematous changes are present. Pleural spaces: Trace right pleural effusion is noted. No pneumothorax. Osseous: Sternotomy changes are noted. Mild deformity of a few ribs noted bilaterally suggestive of remote fractures. Soft tissues: Unremarkable. CT abdomen and pelvis: Liver: Homogenous attenuation is demonstrated. Gallbladder/biliary: Gallbladder appears unremarkable. No calcified gallstones. No evidence of biliary ductal dilatation. Pancreas: Unremarkable. Spleen: Unremarkable. Adrenals: Unremarkable. Kidneys and ureters: There are a few small stones in the right kidney measuring up to 4 mm. No hydronephrosis. No obstructing ureteral stone. Bladder: Bladder wall appears thickened. Pelvic organs: Unremarkable. Bowel: A G-tube is present. No evidence of bowel obstruction. No bowel wall thickening. Appendix is not well seen. Peritoneum: No free air. There is a small amount of free fluid in the pelvis with density greater than simple fluid. Lymph nodes: Unremarkable. Vasculature: Aortoiliac atherosclerosis is present. Left common iliac artery appears mildly enlarged measuring 1.8 cm in width. Soft tissues: Unremarkable. Bones: Degenerative changes of the lumbar spine noted. There are chronic bilateral pars defects at L5 with grade 1 anterolisthesis of L5 relative to S1. Chronic appearing osseous excrescence arising from the right iliac bone posterior and superior to the acetabulum noted. Impression: 1. Consolidation throughout the right lower lobe concerning for pneumonia with bronchiectasis. Smaller amount of consolidation in the left lower lobe posteriorly. 2. Multifocal groundglass and tree-in-bud opacities in both lungs suggestive of pneumonia. 3. Small amount of tracheal and right mainstem bronchial secretions. 4. Thickened appearance of the bladder which may be related to incomplete distention or chronic outlet obstruction, correlate clinically for cystitis. 5. Small amount of nonspecific free fluid in the pelvis with density greater than simple fluid. 6. Right-sided nephrolithiasis. 7. Atherosclerotic disease. Electronically signed by: Fer Mott MD 09/12/2018 1:04 AM [employer]
[2018-09-12 02:10] VITALS: BP 100/68; TEMP 98; O2SAT 100
== END 2018-09-12 02:30 | disposition short-term general hospital (02) ==
LOC: ER 20:09
DX: J18.9 Pneumonia, unspecified organism (principal); D64.9 Anemia, unspecified; R41.82 Altered mental status, unspecified; I51.9 Heart disease, unspecified; J44.9 Chronic obstructive pulmonary disease, unspecified; I10 Essential (primary) hypertension; Z99.11 Dependence on respirator [ventilator] status; Z93.1 Gastrostomy status; Z86.73 Personal history of transient ischemic attack (TIA), and cerebral infarction without residual deficits
CPT/HCPCS: 36415; 71045; 71250; 74176; 80053; 81001; 82270; 83605; 85025; 86850; 86900; 86901; 86922; 87040; 87086; 94002; J2543; J3370; J7030; J7040; J7050; P9016

== ENCOUNTER 2018-09-14 15:32 | Emergency (ER) | payer MEDICARE, MEDICAID ==
--- NOTE | 2018-09-14 16:37 | ED.PDOC ---
History of Present Illness - General Chief Complaint: Respiratory Problem Stated Complaint: LOW SPO2 Time Seen by Provider: 09/14/18 16:34 Source: EMS notes reviewed, [facility] records Exam Limitations: clinical condition - History of Present Illness Initial Comments: PT BROUGHT TO THE ED BY EMS FROM [facility]. PT WAS SENT HERE SHORTLY AFTER ARRIVING TO THAT FACILITY FROM [place] FOR LOW SPO2. PT HAS A HISTORY OF CHF, SEPSIS AND PNEUMONIA AND IS CURRENTLY ON IV VANCOMYCIN. PT UNABLE TO PROVIDE ANY INFORMATION SO THE ROS AND HPI IS LIMITED. Severity: mild Activities at Onset: none Improving Factors: nothing Worsening Factors: nothing Allergies/Adverse Reactions: Allergies NO KNOWN ALLERGY Allergy (Verified 07/08/18 01:30) Review of Systems - Review of Systems Constitutional: States: see HPI EENTM: States: see HPI Respiratory: States: see HPI Cardiology: States: see HPI Gastrointestinal/Abdominal: States: see HPI Genitourinary: States: see HPI Musculoskeletal: States: see HPI Skin: States: see HPI Neurological: States: see HPI Endocrine: States: see HPI Past Medical History (General) - Patient Medical History Hx Seizures: Yes Hx Stroke: Yes Hx Dementia: No Hx Asthma: No Hx of COPD: Yes Hx Cardiac Disorders: Yes Hx Congestive Heart Failure: Yes Hx Pacemaker: No Hx Hypertension: Yes Hx Thyroid Disease: No Hx Diabetes: No Hx Gastroesophageal Reflux: Yes Hx Renal Disease: No Hx Cancer: No Hx of HIV: No Hx Hepatitis C: No Hx MRSA: No MRSA Source:: Sputum Other Surgeries:: TRACHEOSTOMY, VENT DEPENDENT - Vaccination History Hx Tetanus, Diphtheria Vaccination: No Hx Influenza Vaccination: Yes Hx Pneumococcal Vaccination: Yes - Social History Hx Tobacco Use: No Hx Chewing Tobacco Use: No Hx Alcohol Use: No Hx Substance Use: No Hx Substance Use Treatment: No Hx Depression: No Hx Physical Abuse: No Hx Emotional Abuse: No Hx Suspected Abuse: No - Female History Patient : No Family Medical History - Family History Father Family History: Unknown Physical Exam - Physical Exam General Appearance: Alert, Emaciated, No apparent distress Eyes, Ears, Nose, Throat Exam: normal ENT inspection Neck: other - TRACHEOSTOMY WITH VENTILATOR Respiratory: lungs clear, normal breath sounds, no respiratory distress, no accessory muscle use Cardiovascular/Chest: regular rate, rhythm, no murmur Gastrointestinal/Abdominal: non tender, soft Extremity: no pedal edema, other - ATROPHIC AND CONTRACTED Neurologic: alert, aphasia Skin Exam: normal color, warm/dry Progress - Progress Progress: 09/14/18 18:31 PT REMAINS COMFORTABLE WILL START NTG, HEPARIN DRIP - Results/Orders Results/Orders: Laboratory Tests 09/14/18 09/14/18 09/14/18 17:01 17:01 17:01 WBC 25.5 H* RBC 3.10 L D Hgb 8.7 L D Hct 27.2 L D MCV 87.7 MCH 28.0 MCHC 32.0 L RDW 16.4 H Plt Count 360 MPV 5.9 L Absolute Neuts (auto) 21.00 H Absolute Lymphs (auto) 0.50 L Absolute Monos (auto) 3.80 H Absolute Eos (auto) 0.10 Absolute Basos (auto) 0.10 Total Counted Cancelled Neutrophils % 82.5 H Neutrophils % (Manual) Cancelled Lymphocytes % 1.9 L Lymphocytes % (Manual) Cancelled Monocytes % 15.1 H Monocytes % (Manual) Cancelled Eosinophils % 0.3 L Basophils % 0.2 Band Neutrophils Cancelled Eosinophils Cancelled Basophils Cancelled Metamyelocytes Cancelled Myelocytes Cancelled Promyelocytes Cancelled Nucleated RBCs Cancelled Hypersegmented Polys Cancelled Blast Cells Cancelled Plasma Cells Cancelled Other Cell Type Cancelled Hypochromia Cancelled Toxic Granulation Cancelled Dohle Bodies Cancelled [place]s Cancelled Platelet Estimate Cancelled Normal RBC Morphology Cancelled Polychromasia Cancelled Poikilocytosis Cancelled Basophilic Stippling Cancelled Anisocytosis Cancelled Microcytosis Cancelled Macrocytosis Cancelled Spherocytes Cancelled Sickle Cells Cancelled Target Cells Cancelled Ovalocytes Cancelled Stomatocytes Cancelled Helmet Cells Cancelled [place] Bodies Cancelled [place] Rings Cancelled [place] Cells Cancelled Acanthocytes (Spur) Cancelled Rouleaux Cancelled Schistocytes Cancelled RBC Morph Comment Cancelled PUBS Tear Drop Cells Cancelled Sodium 144 Potassium 3.8 Chloride 118 H* D Carbon Dioxide 20 L Anion Gap 9.8 L BUN 27 H D Creatinine 1.00 BUN/Creatinine Ratio 27.0 H Random Glucose 111 H Serum Osmolality 292.6 Calcium 8.6 Total Bilirubin 0.3 AST 24 ALT < 8 L Alkaline Phosphatase 54 D Creatine Kinase 42 CK-MB (CK-2) 8.4 H* CK-MB (CK-2) % Not Reportable Troponin I 0.38 H* B-Natriuretic Peptide 1550.0 H* Serum Total Protein 6.6 Albumin 1.7 L Globulin 4.9 H Albumin/Globulin Ratio 0.3 L - EKG/XRAY/CT EKG: Sinus - @95BPM, NL INTERVALS, NL AXIS, POOR R WAVE PROGRESSION, nonspecific ST T wave Chg, Changed from - COVING OF ST SEGMENTS IN V3, V4 WHEN COMPARED TO PREVIOUS FROM 08/08/18 XRAY: chest - PERSISTENT INFILTRATES, PER RAD - Consult/PCP Time Called: 18:10 Consult/PCP: CASE DISCUSSED WITH DR. GIRON WHO AGREES WITH PLAN FOR NTG, HEPARIN, TRANS Departure - Departure Clinical Impression: NSTEMI (non-ST elevated myocardial infarction), Respiratory failure, Ventilator dependent, Chronic indwelling [place] catheter, Pneumonia, PEG ( percutaneous endoscopic gastrostomy) status, Sepsis Time of Disposition: 18:35 Disposition: Transfer to Hospital Condition: Fair Departure Forms: ED Discharge - Pt. Copy, Patient Portal Self Enrollment Referrals: JOVAN PIPER [Primary Care Provider] - 1-2 Weeks Critical Care Note - Critical Care Note Total Time (mins): 35 Transfer to Outside Facility - Transfer Information Accepting Provider:: DR. HORN Accepting Facility: [facility] Reason for Transfer: required specialist not available - CARDIOLOGY
[2018-09-14] MEDS ORDERED: SODIUM CHLORIDE 0.9% (FLUSH) 10 ML SYG IV PRN (16:41)
--- NOTE | 2018-09-14 16:57 | RAD ---
EXAM DESCRIPTION: Chest,1 View CLINICAL HISTORY:63 years Male, LOW SPO2 Comparison: September 11, 2018 FINDINGS: Unchanged bilateral basilar airspace opacities, right worse than left representing pneumonia and/or pulmonary edema. Possible small bilateral pleural effusions. No pneumothorax. Trachea stomach tube in place. Electronically signed by: Cliff Godwin MD 09/14/2018 4:56 PM [employer]
[2018-09-14] MEDS ORDERED: HEPARIN PREMIX 500 ML ONE (18:53)
[2018-09-14] MEDS ORDERED: NITROGLYCERIN/D5W IV 250 ML IVS ONE (18:53)
[2018-09-14] MEDS ORDERED: NITROGLYCERIN/D5W IV 50,000 MCG in PREMIX BOTTLE 1 BOTTLE IVS SCH (19:00)
[2018-09-14] MEDS ORDERED: HEPARIN PREMIX 25,000 UNITS in PREMIX BAG 1 BAG IVS SCH (19:00)
[2018-09-15 02:41] VITALS: BP 143/61; TEMP 97; O2SAT 99
== END 2018-09-14 20:30 | disposition short-term general hospital (02) ==
LOC: ER 15:32
DX: I21.4 Non-ST elevation (NSTEMI) myocardial infarction (principal); A41.9 Sepsis, unspecified organism; J96.90 Respiratory failure, unspecified, unspecified whether with hypoxia or hypercapnia; K21.9 Gastro-esophageal reflux disease without esophagitis; I50.9 Heart failure, unspecified; I11.0 Hypertensive heart disease with heart failure; R56.9 Unspecified convulsions; Z99.11 Dependence on respirator [ventilator] status; Z93.1 Gastrostomy status; Z93.0 Tracheostomy status; Z86.73 Personal history of transient ischemic attack (TIA), and cerebral infarction without residual deficits
CPT/HCPCS: 36415; 71045; 80053; 82550; 82553; 83880; 84484; 85025; 93005; 94002; 94770; J1644

== ENCOUNTER 2018-10-01 15:45 | Emergency (ER) | payer MEDICARE, MEDICAID ==
[2018-10-01] MEDS ORDERED: SODIUM CHLORIDE 0.9% 1000ML 1,000 ML IVS ONE ×2 (16:16→17:04)
--- NOTE | 2018-10-01 16:20 | ED.PDOC ---
History of Present Illness - General Chief Complaint: Fever Stated Complaint: fever Time Seen by Provider: 10/01/18 15:58 Source: EMS notes reviewed, longterm records Exam Limitations: clinical condition - quadriplegia and permanent trach - History of Present Illness Initial Comments: Pt is from senior living care facility. fever reported this am.. Has been off antibiotics x 2-3 days from recent pneumonia Timing/Duration: this morning Fever Severity/Quality: greater than 100.5 F Fever Therapy DIESEL LUBE TECH: Tylenol Review of Systems - Review of Systems Unable to Obtain Due To: condition, intubated Past Medical History (General) - Patient Medical History Hx Seizures: Yes Hx Stroke: Yes Hx Dementia: No Hx Asthma: No Hx of COPD: Yes Hx Cardiac Disorders: Yes Hx Congestive Heart Failure: Yes Hx Pacemaker: No Hx Hypertension: Yes Hx Thyroid Disease: No Hx Diabetes: Yes Hx Gastroesophageal Reflux: Yes Hx Renal Disease: No Hx Cancer: No Hx of HIV: No Hx Hepatitis C: No Hx MRSA: No MRSA Source:: Sputum Surgical History: coronary bypass surgery - Vaccination History Hx Tetanus, Diphtheria Vaccination: No Hx Influenza Vaccination: Yes - 07/05/18 Hx Pneumococcal Vaccination: Yes - 06/30/18 - Social History Hx Tobacco Use: No Hx Chewing Tobacco Use: No Hx Alcohol Use: No Hx Substance Use: No Hx Substance Use Treatment: No Hx Depression: No Hx Physical Abuse: No Hx Emotional Abuse: No Hx Suspected Abuse: No - Activities of Daily Living [facility]isted Living (if applicable):: [facility] - Female History Patient : No Family Medical History - Family History Father Family History: Unknown Physical Exam - Physical Exam General Appearance: Emaciated, Frail, Lethargic Eye Exam: bilateral normal ENT Exam: other - tracheostomy, on vent Neck: normal inspection Respiratory: no respiratory distress, decreased breath sounds, rales, rhonchi Cardiovascular/Chest: regular rate, rhythm, no edema Gastrointestinal/Abdominal: normal bowel sounds, non tender, soft, other - gastrostomy with tube, beckman cath to bag Extremity: other - generalized atrophy of all limbs Neurologic: other - lethargic , makes eye contact Departure - Departure Clinical Impression: Sepsis associated hypotension Pneumonia of both lower lobes Qualifiers: Pneumonia type: due to unspecified organism Qualified Code(s): J18.1 - Lobar pneumonia, unspecified organism Anemia Qualifiers: Anemia type: unspecified type Qualified Code(s): D64.9 - Anemia, unspecified Disposition: Transfer to Hospital Condition: Serious Departure Forms: ED Discharge - Pt. Copy, Patient Portal Self Enrollment Referrals: JOVAN PIPER [Primary Care Provider] - 1-2 Weeks Critical Care Note - Critical Care Note Total Time (mins): 45 Comments: Event: fever, hypotension. Findings: Leukocytosis, hypotension, anemia, acute kidney injury, bilateral lower lobe infiltrates. Actions: IV NS 2000 ml bolus, blood cultures, IV Cefepime, Tranfer to [facility] for higher level of care Transfer to Outside Facility - Transfer Information Accepting Facility: [facility] - Dr Boucher accepted transfer Reason for Transfer: ICU
--- NOTE | 2018-10-01 16:46 | RAD ---
EXAM DESCRIPTION: Chest,1 View CLINICAL HISTORY: fever COMPARISON: 14 September 2018 TECHNIQUE: AP portable chest FINDINGS: An endotracheal tube is seen in place at the level of the thoracic inlet. The patient is poststernotomy. Bilateral basilar infiltrates are observed. There is evidence suggesting bilateral pleural effusions. The heart is within range of normal. There has been a slight interval improvement in aeration the chest when comparison is made to the previous exam. IMPRESSION: Persistent bilateral predominantly basilar infiltrates are observed in both lungs. There is been a slight interval improvement in aeration the chest since the previous exam. Electronically signed by: Nehemias Jones MD 10/01/2018 4:45 PM [facility]
[2018-10-01] MEDS ORDERED: CEFEPIME 2 GM in SODIUM CHL 0.9% 50ML MIN-BAG+ 50 ML IVPB ONE (17:34)
[2018-10-01 17:38] VITALS: O2SAT 99
[2018-10-01] MEDS ORDERED: CEFEPIME 2 GM VIAL ONE (17:54)
[2018-10-01] MEDS ORDERED: SODIUM CHL 0.9% 50ML MIN-BAG+ 50 ML IVPB ONE (17:55)
[2018-10-01 18:31] VITALS: BP 121/72; TEMP 98.8
== END 2018-10-01 18:39 | disposition short-term general hospital (02) ==
LOC: ER 15:45
DX: A41.9 Sepsis, unspecified organism (principal); J18.9 Pneumonia, unspecified organism; I95.9 Hypotension, unspecified; D64.9 Anemia, unspecified; I50.9 Heart failure, unspecified; I11.0 Hypertensive heart disease with heart failure; J44.9 Chronic obstructive pulmonary disease, unspecified; E11.9 Type 2 diabetes mellitus without complications; K21.9 Gastro-esophageal reflux disease without esophagitis; Z86.73 Personal history of transient ischemic attack (TIA), and cerebral infarction without residual deficits
CPT/HCPCS: 36415; 36600; 71045; 80053; 81001; 82803; 83605; 85025; 87040; 87086; 94002; J0692; J7030; J7050

== ENCOUNTER 2018-10-22 08:53 | Emergency (ER) | payer MEDICARE, MEDICAID ==
--- NOTE | 2018-10-22 09:12 | ED.PDOC ---
History of Present Illness - General Chief Complaint: Respiratory Problem Time Seen by Provider: 10/22/18 09:06 Source: EMS notes reviewed Exam Limitations: clinical condition, other - PATIENT INTUBATED Additional Information: THIS PATIENT IS ON A VENT AND IS BROUGHT TO THE ED BECAUSE HE DE SATURATES TO THE MID 80'S. HE IS A STROKE PATIENT WITH COPD ON A VENT. THERE IS A CONCERN FOR ASPIRATION PNEUMONIA. NO FEVER IS REPORTED. - History of Present Illness Timing/Duration: this morning Cough Quality/Degree: mild Possible Cause: other - SUSPECT ASPIRATION Improving Factors: rest Worsening Factors: nothing Associated Symptoms: denies symptoms Respiratory Risk Factors: other - VENT PATIENT Allergies/Adverse Reactions: Allergies NO KNOWN ALLERGY Allergy (Verified 07/08/18 01:30) Home Medications: Ambulatory Orders Acetaminophen [Tylenol] 650 mg PEG Q6H PRN 10/22/18 Albuterol Sulfate Nebs [Proventil Nebs] 2.5 mg INH Q4H 10/22/18 Albuterol Sulfate Nebs [Proventil Nebs] 2.5 mg INH Q6H PRN 10/22/18 Atorvastatin Calcium [Lipitor] 10 mg PEG DAILY 10/22/18 Atropine 1% Ophth Bhavani [(None)] 2 drop SL Q4H PRN 10/22/18 Budesonide (Inhalation) [Budesonide] 0.5 mg .ROUTE BID 10/22/18 Clonidine HCl 0.1 mg PEG Q8H PRN 10/22/18 Diltiazem HCl 60 mg PEG BID 10/22/18 Famotidine 20 mg PO BID 10/22/18 Ferrous Sulfate 5 ml PEG DAILY 10/22/18 Folic Acid 1 mg PEG DAILY 10/22/18 Lactobacillus [Acidophilus Lactobacilli] 1 cap PEG DAILY 10/22/18 Potassium Chloride [K-Tab] 10 meq PEG DAILY 10/22/18 Risperidone 1 mg PEG DAILY 10/22/18 Scopolamine Patch 1.5MG [Transderm-Scop Patch] 1 ea TD Q72H 10/22/18 Valproate Sodium [Depakene] 5 ml PEG Q8H 10/22/18 levETIRAcetam SUSPENSION [Keppra] 1.5 ml PEG BID 10/22/18 Review of Systems - Review of Systems Review of Systems: 10/22/18 09:12 UNABLE TO OBTAIN BECAUSE THE PATIENT IS INTUBATED. Past Medical History (General) - Patient Medical History Hx Seizures: Yes Hx Stroke: Yes Hx Dementia: No Hx Asthma: No Hx of COPD: Yes Hx Cardiac Disorders: Yes Hx Congestive Heart Failure: Yes Hx Pacemaker: No Hx Hypertension: Yes Hx Thyroid Disease: No Hx Diabetes: Yes Hx Gastroesophageal Reflux: Yes Hx Renal Disease: No Hx Cancer: No Hx of HIV: No Hx Hepatitis C: No Hx MRSA: No MRSA Source:: Sputum - Vaccination History Hx Tetanus, Diphtheria Vaccination: No Hx Influenza Vaccination: Yes - 07/05/18 Hx Pneumococcal Vaccination: Yes - 06/30/18 - Social History Hx Tobacco Use: No Hx Chewing Tobacco Use: No Hx Alcohol Use: No Hx Substance Use: No Hx Substance Use Treatment: No Hx Depression: No Hx Physical Abuse: No Hx Emotional Abuse: No Hx Suspected Abuse: No - Female History Patient : No Family Medical History - Family History Father Family History: Unknown Physical Exam - Physical Exam General Appearance: Alert, Other - INTUBATED ENT Exam: normal ENT inspection Neck: normal inspection, trachea midline Respiratory: no respiratory distress, no accessory muscle use, other - SCATERRED RHONCI Cardiovascular/Chest: normal peripheral pulses, regular rate, rhythm, no edema, no gallop Gastrointestinal/Abdominal: other - G TUBE PLACED ON THE LEFT SIDE OF THE ABDOMEN Extremity: normal inspection, no pedal edema Neurologic: alert Skin Exam: normal color Progress - Progress Progress: 10/22/18 10:20 THE CHEST X RAY IS REPORTED- INCREASING OPACITIES THROUGHOUT BOTH LUNGS. THE BNP IS OVER 2400 [place] [address]. HE HAS CHF AND SUPERIMPOSED PNEUMONIA. - Results/Orders Results/Orders: 10/22/18 09:10 Mechanical Ventilation DAILY 10/22/18 09:11 Capnography .ONCE 10/22/18 10:12 cefTRIAXone SODIUM [Rocephin] 1 gm Sodium Chl 0.9% 50Ml Min-Bag+ [NS 50ml MINI-BAG+] 50 ml IVPB ONCE BLOOD CULTURE Stat 10/22/18 10:13 Azithromycin IV [Zithromax IV] 500 mg Sodium Chloride 0.9% 250Ml [NS 250ml] 250 ml IVPB ONCE Laboratory Results WBC 19.3 K/mm3 (4.8-10.8) H 10/22/18 08:45 RBC 2.41 M/mm3 (4.70-6.10) L 10/22/18 08:45 Hgb 6.9 gm/dL (14.0-18.0) L* 10/22/18 08:45 Hct 21.4 % (42.0-52.0) L 10/22/18 08:45 MCV 89.0 fl (80.0-94.0) 10/22/18 08:45 MCH 28.6 pg (27.0-31.0) 10/22/18 08:45 MCHC 32.2 g/dL (33.0-37.0) L 10/22/18 08:45 RDW 18.1 % (11.5-14.5) H 10/22/18 08:45 Plt Count 341 K/mm3 (130-400) 10/22/18 08:45 MPV 7.9 fl (7.40-10.4) 10/22/18 08:45 Absolute Neuts (auto) 15.80 K/uL (1.8-6.8) H 10/22/18 08:45 Absolute Lymphs (auto) 0.50 K/uL (1.0-3.4) L 10/22/18 08:45 Absolute Monos (auto) 2.80 K/uL (0.2-0.8) H 10/22/18 08:45 Absolute Eos (auto) 0.10 K/uL (0.0-0.4) 10/22/18 08:45 Absolute Basos (auto) 0.10 K/uL (0.0-0.1) 10/22/18 08:45 Neutrophils % 81.9 % (42.0-78.0) H 10/22/18 08:45 Lymphocytes % 2.8 % (20.0-50.0) L 10/22/18 08:45 Monocytes % 14.7 % (2.0-9.0) H 10/22/18 08:45 Eosinophils % 0.3 % (1.0-5.0) L 10/22/18 08:45 Basophils % 0.3 % (0.0-2.0) 10/22/18 08:45 pCO2 42 mmHg (35-48) 10/22/18 09:31 pO2 91 mmHg (83-108) 10/22/18 09:31 HCO3 25.6 mmol/L 10/22/18 09:31 ABG pH 7.410 (7.35-7.45) 10/22/18 09:31 ABG O2 Saturation 98.5 % (95.0-99.0) 10/22/18 09:31 ABG Base Excess 1.4 mmol/L 10/22/18 09:31 ABG Deoxyhemoglobin 1.4 % (0.0-5.0) 10/22/18 09:31 Oxyhemoglobin % 95.5 % (94.0-98.0) 10/22/18 09:31 Carboxyhemoglobin % -0.2 % (0.5-1.5) L 10/22/18 09:31 Methemoglobin % Sat 3.2 % (0.0-1.5) H 10/22/18 09:31 Calc Total Hemoglobin 6.4 g/dL (13.5-17.5) L 10/22/18 09:31 Sodium 134 mmol/L (135-145) L 10/22/18 08:45 Potassium 4.2 mmol/L (3.6-5.0) 10/22/18 08:45 Chloride 98 mmol/L (101-111) L 10/22/18 08:45 Carbon Dioxide 26 mmol/L (21-31) 10/22/18 08:45 Anion Gap 14.2 (12-18) 10/22/18 08:45 BUN 104 mg/dL (7-18) H* 10/22/18 08:45 Creatinine 2.32 mg/dL (0.6-1.3) H 10/22/18 08:45 BUN/Creatinine Ratio 44.8 (10-20) H 10/22/18 08:45 Random Glucose 168 mg/dL (70-105) H 10/22/18 08:45 Serum Osmolality 304.7 mOsm/L (275-295) H 10/22/18 08:45 Calcium 9.2 mg/dL (8.4-10.2) 10/22/18 08:45 Total Bilirubin 0.4 mg/dL (0.2-1.0) 10/22/18 08:45 AST 45 IU/L (10-42) H 10/22/18 08:45 ALT 20 IU/L (10-60) 10/22/18 08:45 Alkaline Phosphatase 178 IU/L (42-121) H 10/22/18 08:45 B-Natriuretic Peptide 2450.0 pg/ml (0-100) H* 10/22/18 09:12 Serum Total Protein 7.3 gm/dL (6.4-8.2) 10/22/18 08:45 Albumin 1.4 g/dl (3.2-5.5) L* 10/22/18 08:45 Globulin 5.9 gm/dL (2.3-3.5) H 10/22/18 08:45 Albumin/Globulin Ratio 0.2 (1.1-1.9) L 10/22/18 08:45 HAD CALLED TO HOSPITALIST AT DR. RAMOS AND HE WANTED TO SEE IF THE PATIENT COULD BE TREATED AT THE DC. I HAVE CALLED THE DC AND THEY ARE ABLE TO GIVE IV ANTIBIOTICS BUT NOT IV LASIX. WILL SENT TO . Departure - Departure Clinical Impression: Congestive heart failure Qualifiers: Heart failure type: diastolic Heart failure chronicity: acute on chronic Qualified Code(s): I50.33 - Acute on chronic diastolic (congestive) heart failure Anemia Qualifiers: Anemia type: iron deficiency Iron deficiency anemia type: chronic blood loss Qualified Code(s): D50.0 - Iron deficiency anemia secondary to blood loss (chronic) Pneumonia Qualifiers: Pneumonia type: due to unspecified organism Laterality: bilateral Lung location: upper lobe of lung Qualified Code(s): J18.1 - Lobar pneumonia, unspecified organism Time of Disposition: 11:22 Disposition: Transfer to Hospital Condition: Fair Home Medications: Ambulatory Orders Acetaminophen [Tylenol] 650 mg PEG Q6H PRN 10/22/18 Albuterol Sulfate Nebs [Proventil Nebs] 2.5 mg INH Q4H 10/22/18 Albuterol Sulfate Nebs [Proventil Nebs] 2.5 mg INH Q6H PRN 10/22/18 Atorvastatin Calcium [Lipitor] 10 mg PEG DAILY 10/22/18 Atropine 1% Ophth Bhavani [(None)] 2 drop SL Q4H PRN 10/22/18 Budesonide (Inhalation) [Budesonide] 0.5 mg .ROUTE BID 10/22/18 Clonidine HCl 0.1 mg PEG Q8H PRN 10/22/18 Diltiazem HCl 60 mg PEG BID 10/22/18 Famotidine 20 mg PO BID 10/22/18 Ferrous Sulfate 5 ml PEG DAILY 10/22/18 Folic Acid 1 mg PEG DAILY 10/22/18 Lactobacillus [Acidophilus Lactobacilli] 1 cap PEG DAILY 10/22/18 Potassium Chloride [K-Tab] 10 meq PEG DAILY 10/22/18 Risperidone 1 mg PEG DAILY 10/22/18 Scopolamine Patch 1.5MG [Transderm-Scop Patch] 1 ea TD Q72H 10/22/18 Valproate Sodium [Depakene] 5 ml PEG Q8H 10/22/18 levETIRAcetam SUSPENSION [Keppra] 1.5 ml PEG BID 10/22/18 Decision To Admit - Decistion To Admit Decision to Admit Date: 10/22/18 Decision to Admit Time: 11:20
--- NOTE | 2018-10-22 09:52 | RAD ---
EXAM DESCRIPTION: Chest,1 View CLINICAL HISTORY: 63 years Male, VENT PATIENT-DESATURATING COMPARISON: Radiographs of the chest dated 10/01/2018. TECHNIQUE: AP radiograph of the chest was obtained. FINDINGS: Trachea is midline.The cardiomediastinal silhouette is normal in size. The pulmonary vasculature is within normal limits. Airspace opacities are identified throughout both lungs, worse compared to prior examination.No evidence of pleural effusions. IMPRESSION: Worsening airspace opacities throughout both lungs, compared to 10/01/2018. Electronically signed by: Lisa Alas MD 10/22/2018 9:51 AM [facility]
[2018-10-22] MEDS ORDERED: FUROSEMIDE INJ 40 MG/4 ML VIAL IV ONE (10:12)
[2018-10-22] MEDS ORDERED: cefTRIAXone SODIUM 1 GM in SODIUM CHL 0.9% 50ML MIN-BAG+ 50 ML IVPB ONE (10:12)
[2018-10-22] MEDS ORDERED: AZITHROMYCIN IV 500 MG in SODIUM CHLORIDE 0.9% 250ML 250 ML IVPB ONE (10:13)
[2018-10-22] MEDS ORDERED: cefTRIAXone SODIUM 1 GM VIAL ONE (10:29)
[2018-10-22] MEDS ORDERED: SODIUM CHL 0.9% 50ML MIN-BAG+ 50 ML IVPB ONE (10:30)
[2018-10-22] MEDS ORDERED: AZITHROMYCIN IV 500 MG VIAL IVPB ONE (10:51)
[2018-10-22] MEDS ORDERED: SODIUM CHLORIDE 0.9% 250ML 250 ML ONE (10:51)
[2018-10-22 15:46] VITALS: BP 125/86; O2SAT 94
[2018-10-22 15:47] VITALS: TEMP 97
== END 2018-10-22 14:20 | disposition short-term general hospital (02) ==
LOC: ER 08:53
DX: J18.9 Pneumonia, unspecified organism (principal); I50.33 Acute on chronic diastolic (congestive) heart failure; D50.0 Iron deficiency anemia secondary to blood loss (chronic); J44.9 Chronic obstructive pulmonary disease, unspecified; R56.9 Unspecified convulsions; I11.0 Hypertensive heart disease with heart failure; E11.9 Type 2 diabetes mellitus without complications; K21.9 Gastro-esophageal reflux disease without esophagitis; Z99.11 Dependence on respirator [ventilator] status; Z86.73 Personal history of transient ischemic attack (TIA), and cerebral infarction without residual deficits; Z79.899 Other long term (current) drug therapy
CPT/HCPCS: 36415; 36600; 71045; 80053; 82803; 82805; 83880; 85025; 87040; 94002; 94003; 94770; J0456; J0696; J1940; J7050

== ENCOUNTER 2018-10-25 23:18 | Emergency (ER) | payer MEDICARE, MEDICAID ==
[2018-10-25 23:29] VITALS: TEMP 99.7
--- NOTE | 2018-10-25 23:32 | ED.PDOC ---
History of Present Illness - General Chief Complaint: Blood Pressure Problem Stated Complaint: Sent from [facility] for low BP, low O2 sats. Time Seen by Provider: 10/25/18 23:29 Source: [facility] records Exam Limitations: physical impairment - History of Present Illness Initial Comments: Patient comes her by EMS from [facility] after they reported that he had oxygen saturations in the 80s and a systolic bp in the 70s. Upon arrival, his systolic bp is 111 and oxygen 99%. Patient is chronically ventilated and oxygen is set at 60%. He is currently being treated for pneumonia with Rocephin and azithromycin. No other complaints. Timing/Duration: unsure Severity: mild Improving Factors: nothing Worsening Factors: nothing Allergies/Adverse Reactions: Allergies NO KNOWN ALLERGY Allergy (Verified 07/08/18 01:30) Home Medications: Ambulatory Orders Acetaminophen [Tylenol] 650 mg PEG Q6H PRN 10/22/18 Albuterol Sulfate Nebs [Proventil Nebs] 2.5 mg INH Q4H 10/22/18 Albuterol Sulfate Nebs [Proventil Nebs] 2.5 mg INH Q6H PRN 10/22/18 Atorvastatin Calcium [Lipitor] 10 mg PEG DAILY 10/22/18 Atropine 1% Ophth Bhavani [(None)] 2 drop SL Q4H PRN 10/22/18 Budesonide (Inhalation) [Budesonide] 0.5 mg .ROUTE BID 10/22/18 Clonidine HCl 0.1 mg PEG Q8H PRN 10/22/18 Diltiazem HCl 60 mg PEG BID 10/22/18 Famotidine 20 mg PO BID 10/22/18 Ferrous Sulfate 5 ml PEG DAILY 10/22/18 Folic Acid 1 mg PEG DAILY 10/22/18 Lactobacillus [Acidophilus Lactobacilli] 1 cap PEG DAILY 10/22/18 Potassium Chloride [K-Tab] 10 meq PEG DAILY 10/22/18 Risperidone 1 mg PEG DAILY 10/22/18 Scopolamine Patch 1.5MG [Transderm-Scop Patch] 1 ea TD Q72H 10/22/18 Valproate Sodium [Depakene] 5 ml PEG Q8H 10/22/18 levETIRAcetam SUSPENSION [Keppra] 1.5 ml PEG BID 10/22/18 Review of Systems - Review of Systems Unable to Obtain Due To: intubated Past Medical History (General) - Patient Medical History Hx Seizures: Yes Hx Stroke: Yes Hx Dementia: No Hx Asthma: No Hx of COPD: Yes Hx Cardiac Disorders: Yes Hx Congestive Heart Failure: Yes Hx Pacemaker: No Hx Hypertension: Yes Hx Thyroid Disease: No Hx Diabetes: Yes Hx Gastroesophageal Reflux: Yes Hx Renal Disease: No Hx Cancer: No Hx of HIV: No Hx Hepatitis C: No Hx MRSA: No MRSA Source:: Sputum - Vaccination History Hx Tetanus, Diphtheria Vaccination: No Hx Influenza Vaccination: Yes - 07/05/18 Hx Pneumococcal Vaccination: Yes - 06/30/18 - Social History Hx Tobacco Use: No Hx Chewing Tobacco Use: No Hx Alcohol Use: No Hx Substance Use: No Hx Substance Use Treatment: No Hx Depression: No Hx Physical Abuse: No Hx Emotional Abuse: No Hx Suspected Abuse: No - Activities of Daily Living [facility]isted Living (if applicable):: [facility] - Female History Patient : No - Triage Comment ED Triage Comment: pt sent for low blood pressure and low oxygen sat readings. On antibiotics for pnuemonia for past 4 days Family Medical History - Family History Father Family History: Unknown Physical Exam - Physical Exam General Appearance: Alert Respiratory: lungs clear, other - transmitted tracheal sounds, otherwise, no rales/rhonchi/crackles/wheezes Cardiovascular/Chest: regular rate, rhythm, no edema Gastrointestinal/Abdominal: normal bowel sounds, soft Skin Exam: normal color Progress - Progress Progress: 10/26/18 05:18 Vital signs stable and wnl during a 6 hour observation in the E.D. here. It is unclear why the [place] had the oximetry and blood pressure that they reported. Patient discharged to [facility]. Departure - Departure Clinical Impression: Blood pressure check Disposition: Discharge to SNF Condition: Good Departure Forms: ED Discharge - Pt. Copy, Patient Portal Self Enrollment Instructions: DI for High Blood Pressure Diet: other - as per his primary doctor Activity: other - as per his primary doctor Referrals: JOVAN PIPER [Primary Care Provider] - 1-2 Weeks Home Medications: Ambulatory Orders Acetaminophen [Tylenol] 650 mg PEG Q6H PRN 10/22/18 Albuterol Sulfate Nebs [Proventil Nebs] 2.5 mg INH Q4H 10/22/18 Albuterol Sulfate Nebs [Proventil Nebs] 2.5 mg INH Q6H PRN 10/22/18 Atorvastatin Calcium [Lipitor] 10 mg PEG DAILY 10/22/18 Atropine 1% Ophth Bhavani [(None)] 2 drop SL Q4H PRN 10/22/18 Budesonide (Inhalation) [Budesonide] 0.5 mg .ROUTE BID 10/22/18 Clonidine HCl 0.1 mg PEG Q8H PRN 10/22/18 Diltiazem HCl 60 mg PEG BID 10/22/18 Famotidine 20 mg PO BID 10/22/18 Ferrous Sulfate 5 ml PEG DAILY 10/22/18 Folic Acid 1 mg PEG DAILY 10/22/18 Lactobacillus [Acidophilus Lactobacilli] 1 cap PEG DAILY 10/22/18 Potassium Chloride [K-Tab] 10 meq PEG DAILY 10/22/18 Risperidone 1 mg PEG DAILY 10/22/18 Scopolamine Patch 1.5MG [Transderm-Scop Patch] 1 ea TD Q72H 10/22/18 Valproate Sodium [Depakene] 5 ml PEG Q8H 10/22/18 levETIRAcetam SUSPENSION [Keppra] 1.5 ml PEG BID 10/22/18 Additional Instructions: Continue with current treatment plan. All vital signs in the E.D. during a 6 hour period were stable and withing normal limits.
[2018-10-26 01:57] VITALS: O2SAT 100
[2018-10-26 06:05] VITALS: BP 108/84
== END 2018-10-26 05:50 ==
LOC: ER 23:18
DX: Z01.30 Encounter for examination of blood pressure without abnormal findings (principal); J18.9 Pneumonia, unspecified organism; R56.9 Unspecified convulsions; J44.9 Chronic obstructive pulmonary disease, unspecified; I50.9 Heart failure, unspecified; I11.0 Hypertensive heart disease with heart failure; E11.9 Type 2 diabetes mellitus without complications; K21.9 Gastro-esophageal reflux disease without esophagitis; Z99.11 Dependence on respirator [ventilator] status; Z79.899 Other long term (current) drug therapy

== ENCOUNTER 2018-10-31 02:13 | Emergency (ER) | payer MEDICARE, MEDICAID ==
[2018-10-31 02:38] VITALS: TEMP 96.7
--- NOTE | 2018-10-31 02:41 | RAD ---
EXAM DESCRIPTION: Chest,1 View CLINICAL HISTORY: 63 years Male, dyspnea, COMPARISON: Chest x-ray October 22, 2018. FINDINGS: Tracheostomy tube is demonstrated. Patchy opacities in both lungs again demonstrated appearing mildly increased in the left lung base. There is blunting of both costophrenic angles which may represent small bilateral pleural effusions versus pleural thickening. There is a possible trace left pneumothorax. Heart size normal. Interval development of a small amount of pneumomediastinum. Sternotomy changes noted. Subcutaneous emphysema in the left chest wall demonstrated. There is a moderate amount of pneumoperitoneum. IMPRESSION: 1. Patchy pulmonary airspace is again demonstrated appearing mildly increased in left lung base. 2. Interval development of pneumomediastinum with possible trace left pneumothorax. 3. Moderate amount of pneumoperitoneum which could be related to pneumomediastinum and extension of air from the chest into the abdomen, bowel perforation, or recent surgery; clinical correlation recommended. 4. Left chest wall subcutaneous emphysema. Major findings reported to Dr. Alejo at 0235 hours central time on April 30, 2019. Electronically signed by: Fer Mott MD 10/31/2018 2:40 AM [facility]
--- NOTE | 2018-10-31 03:33 | ED.PDOC ---
History of Present Illness - General Chief Complaint: Respiratory Problem Stated Complaint: resp issue Time Seen by Provider: 10/31/18 02:52 Source: EMS, correction records Exam Limitations: clinical condition - History of Present Illness Initial Comments: Patient presents from [facility] with a "dislodged trachea". No other information is available. Upon presentation, this chronically intubated patient has bilateral crepitus and tachycardia. Timing/Duration: unsure Severity: moderate Improving Factors: nothing Worsening Factors: nothing Associated Symptoms: other - no other information is available Allergies/Adverse Reactions: Allergies NO KNOWN ALLERGY Allergy (Verified 07/08/18 01:30) Home Medications: Ambulatory Orders Acetaminophen [Tylenol] 650 mg PEG Q6H PRN 10/22/18 Albuterol Sulfate Nebs [Proventil Nebs] 2.5 mg INH Q4H 10/22/18 Albuterol Sulfate Nebs [Proventil Nebs] 2.5 mg INH Q6H PRN 10/22/18 Atorvastatin Calcium [Lipitor] 10 mg PEG DAILY 10/22/18 Atropine 1% Ophth Bhavani [(None)] 2 drop SL Q4H PRN 10/22/18 Budesonide (Inhalation) [Budesonide] 0.5 mg .ROUTE BID 10/22/18 Clonidine HCl 0.1 mg PEG Q8H PRN 10/22/18 Diltiazem HCl 60 mg PEG BID 10/22/18 Famotidine 20 mg PO BID 10/22/18 Ferrous Sulfate 5 ml PEG DAILY 10/22/18 Folic Acid 1 mg PEG DAILY 10/22/18 Lactobacillus [Acidophilus Lactobacilli] 1 cap PEG DAILY 10/22/18 Potassium Chloride [K-Tab] 10 meq PEG DAILY 10/22/18 Risperidone 1 mg PEG DAILY 10/22/18 Scopolamine Patch 1.5MG [Transderm-Scop Patch] 1 ea TD Q72H 10/22/18 Valproate Sodium [Depakene] 5 ml PEG Q8H 10/22/18 levETIRAcetam SUSPENSION [Keppra] 1.5 ml PEG BID 10/22/18 Review of Systems - Review of Systems Unable to Obtain Due To: intubated Past Medical History (General) - Patient Medical History Hx Seizures: Yes Hx Stroke: Yes Hx Dementia: No Hx Asthma: No Hx of COPD: Yes Hx Cardiac Disorders: Yes Hx Congestive Heart Failure: Yes Hx Pacemaker: No Hx Hypertension: Yes Hx Thyroid Disease: No Hx Diabetes: Yes Hx Gastroesophageal Reflux: Yes Hx Renal Disease: No Hx Cancer: No Hx of HIV: No Hx Hepatitis C: No Hx MRSA: No MRSA Source:: Sputum - Vaccination History Hx Tetanus, Diphtheria Vaccination: No Hx Influenza Vaccination: Yes - 07/05/18 Hx Pneumococcal Vaccination: Yes - 06/30/18 - Social History Hx Tobacco Use: No Hx Chewing Tobacco Use: No Hx Alcohol Use: No Hx Substance Use: No Hx Substance Use Treatment: No Hx Depression: No Hx Physical Abuse: No Hx Emotional Abuse: No Hx Suspected Abuse: No - Activities of Daily Living Alf/Assisted Living (if applicable):: Jensen Deng - Female History Patient : No Family Medical History - Family History Father Family History: Unknown Physical Exam - Physical Exam General Appearance: Other - unresponsive Eye Exam: bilateral abnormal pupil - 2 mm and non-reactive, bilateral other - + corneal reflex Respiratory: rhonchi - diffuse, other - crepitus bilaterally, trachea tube patent Cardiovascular/Chest: tachycardia Gastrointestinal/Abdominal: distended - severely distended abdomen Neurologic: other - non-reactive to pain, unresponsive Skin Exam: normal color Progress - Progress Progress: 10/31/18 03:35 CXR showed pneumomediastinum and pneumoperitoneum. NG tube placed because stomach was becoming more distended despite a patent PEG tube. 10/31/18 04:01 Zosyn 4.5 grams IV and Aztreonam 1 gram IV ordered in case the pneumoperitoneum this is from a bowel perforation 10/31/18 04:02 Patient accepted for transfer to [facility]. Departure - Departure Clinical Impression: Pneumomediastinum, Pneumoperitoneum of unknown etiology, Ventilator dependent Disposition: Transfer to Hospital Condition: Serious Departure Forms: ED Discharge - Pt. Copy, Patient Portal Self Enrollment Diet: other - nothing per PEG tube Activity: other - confined to bed Referrals: JOVAN PIPER [Primary Care Provider] - 1-2 Weeks Home Medications: Ambulatory Orders Acetaminophen [Tylenol] 650 mg PEG Q6H PRN 10/22/18 Albuterol Sulfate Nebs [Proventil Nebs] 2.5 mg INH Q4H 10/22/18 Albuterol Sulfate Nebs [Proventil Nebs] 2.5 mg INH Q6H PRN 10/22/18 Atorvastatin Calcium [Lipitor] 10 mg PEG DAILY 10/22/18 Atropine 1% Ophth Bhavani [(None)] 2 drop SL Q4H PRN 10/22/18 Budesonide (Inhalation) [Budesonide] 0.5 mg .ROUTE BID 10/22/18 Clonidine HCl 0.1 mg PEG Q8H PRN 10/22/18 Diltiazem HCl 60 mg PEG BID 10/22/18 Famotidine 20 mg PO BID 10/22/18 Ferrous Sulfate 5 ml PEG DAILY 10/22/18 Folic Acid 1 mg PEG DAILY 10/22/18 Lactobacillus [Acidophilus Lactobacilli] 1 cap PEG DAILY 10/22/18 Potassium Chloride [K-Tab] 10 meq PEG DAILY 10/22/18 Risperidone 1 mg PEG DAILY 10/22/18 Scopolamine Patch 1.5MG [Transderm-Scop Patch] 1 ea TD Q72H 10/22/18 Valproate Sodium [Depakene] 5 ml PEG Q8H 10/22/18 levETIRAcetam SUSPENSION [Keppra] 1.5 ml PEG BID 10/22/18
--- NOTE | 2018-10-31 03:47 | RAD ---
EXAM DESCRIPTION: Chest,1 View CLINICAL HISTORY: 63 years Male, NG placement COMPARISON: Chest x-ray October 31, 2018 at 0224 hours FINDINGS: Tracheostomy tube demonstrated. An esophagogastric tube is in place with tip projecting below the inferior margin of the image. Patchy opacities in both lungs again demonstrated appearing relatively unchanged. There is blunting of both costophrenic angles which may represent small below pleural effusions. Trace left pneumothorax appears unchanged. Heart size appears normal. Aortic atherosclerosis present. Small amount of pneumomediastinum present and appears decreased. Osseous structures are unchanged. Pneumoperitoneum again demonstrated and appears mildly decreased. Left chest wall and neck soft tissue emphysema present. IMPRESSION: 1. Esophogastric tube extends into the stomach with tip projecting below the inferior margin of the image. 2. Relatively unchanged appearance of pulmonary airspace disease. 3. Trace left pneumothorax appears unchanged. 4. Small amount of pneumomediastinum appears slightly decreased. 5. Pneumoperitoneum appears mildly decreased. 6. Soft tissue emphysema in the left base of neck and left chest wall. Electronically signed by: Fer Mott MD 10/31/2018 3:46 AM [facility]
[2018-10-31] MEDS ORDERED: PIPERACILLIN/TAZOBACTAM 4.5 GM in SODIUM CHLORIDE 0.9% 100ML 100 ML IVPB ONE (03:59)
[2018-10-31] MEDS ORDERED: AZTREONAM 1 GM in SODIUM CHL 0.9% 50ML MIN-BAG+ 50 ML IVPB ONE (03:59)
[2018-10-31] MEDS ORDERED: SODIUM CHL 0.9% 50ML MIN-BAG+ 50 ML IVPB ONE (04:06)
[2018-10-31] MEDS ORDERED: AZTREONAM 1 GM VIAL ONE (04:06)
[2018-10-31] MEDS ORDERED: SODIUM CHLORIDE 0.9% 100ML 100 ML IVPB ONE (04:11)
[2018-10-31] MEDS ORDERED: PIPERACILLIN/TAZOBACTAM 2.25 GM VIAL IVPB ONE (04:11)
[2018-10-31] MEDS ORDERED: SODIUM CHLORIDE 0.9% 1000ML 1,000 ML IVS ONE (04:18)
[2018-10-31] MEDS ORDERED: NOREPINEPHRINE BITARTRATE 4 MG/4 ML VIAL IVPB ONE (04:32)
[2018-10-31] MEDS ORDERED: DEXTROSE 5% 250ML 250 ML ONE (04:33)
[2018-10-31 04:56] VITALS: BP 101/63; O2SAT 97
[2018-10-31] MEDS ORDERED: NOREPINEPHRINE BITARTRATE 4 MG in DEXTROSE 5% 250ML 250 ML IVPB SCH (05:00)
== END 2018-10-31 05:25 | disposition short-term general hospital (02) ==
LOC: ER 02:13
DX: J98.2 Interstitial emphysema (principal); K66.8 Other specified disorders of peritoneum; R00.0 Tachycardia, unspecified; J44.9 Chronic obstructive pulmonary disease, unspecified; I50.9 Heart failure, unspecified; I11.0 Hypertensive heart disease with heart failure; E11.9 Type 2 diabetes mellitus without complications; K21.9 Gastro-esophageal reflux disease without esophagitis; R56.9 Unspecified convulsions; Z99.11 Dependence on respirator [ventilator] status; Z86.73 Personal history of transient ischemic attack (TIA), and cerebral infarction without residual deficits; Z79.899 Other long term (current) drug therapy
CPT/HCPCS: 36415; 36600; 71045; 80053; 82803; 82805; 83605; 84436; 84443; 85025; 94002; 94770; J2543; J7050; J7060